=== PATIENT | male | born 1960 | race Caucasian/White ===

== ENCOUNTER 2022-12-27 10:33 | Day surgery (SDC) | payer BC, MEDICAID ==
[~2022-12-27] VITALS: Ht 167.6 cm; Wt 81.6 kg
[2022-12-27] MEDS ORDERED: ACETAMINOPHEN I.V. 1000 MG 100 ML IV ONE (13:43)
[2022-12-27] MEDS ORDERED: LABETALOL 100 MG/ 20ML VIAL IVP PRN (13:45)
[2022-12-27] MEDS ORDERED: LR 1,000 ML IV SCH (13:45)
[2022-12-27] MEDS ORDERED: HYDROmorphone 1 MG/ML INJ. CARTRIDGE IVP PRN ×2 (13:45)
[2022-12-27] MEDS ORDERED: MEPERIDINE HCL/PF 25 MG/ML DISP.SYRIN IVP PRN (13:45)
[2022-12-27] MEDS ORDERED: MIDAZOLAM HCL 2 MG/2 ML VIAL (VERSED) IVP PRN (13:45)
[2022-12-27] MEDS ORDERED: METOCLOPRAMIDE HCL 10 MG/2 ML VIAL IVP PRN (13:45)
[2022-12-27] MEDS ORDERED: hydrALAZINE HCL 20 MG/ML VIAL IVP PRN (13:45)
[2022-12-27] MEDS ORDERED: MUPIROCIN 2% TOPICAL OINTMENT 22 GM ONE (15:44)
[2022-12-27] MEDS ORDERED: LR 1,000 ML IV.SOLN IV ONE (15:44)
[2022-12-27] MEDS ORDERED: WATER FOR IRRIGATION,STERILE 1,000 ML IRRIG.SOLN IR ONE (15:44)
[2022-12-27] MEDS ORDERED: NS 1000 ML IV.SOLN IV ONE (15:44)
[2022-12-27] MEDS ORDERED: PROPOFOL 200MG/ 20ML VIAL (DIPRIVAN) IV ONE (15:44)
[2022-12-27] MEDS ORDERED: ROCURONIUM BROMIDE 10 MG/ML (ZEMURON) ONE (15:44)
[2022-12-27] MEDS ORDERED: DEXAMETHASONE SOD PHOSPHATE 4 MG/ML VIAL ONE (15:44)
[2022-12-27] MEDS ORDERED: fentaNYL CITRATE/PF 100 MCG/2 ML AMP ONE (15:44)
[2022-12-27] MEDS ORDERED: EPINEPHrine HCL 1 MG/ML VIAL ONE (15:44)
[2022-12-27] MEDS ORDERED: ONDANSETRON HCL 4 MG/2 ML VIAL ONE (15:44)
[2022-12-27] MEDS ORDERED: LIDOCAINE 1% 10 MG/ML, 20 ML MDV ONE (15:44)
[2022-12-27] MEDS ORDERED: LIDOCAINE 2%, 20 ML MDV ONE (15:44)
[2022-12-27] MEDS ORDERED: MIDAZOLAM HCL 2 MG/2 ML VIAL (VERSED) ONE (15:44)
[2022-12-27] MEDS ORDERED: NS IRRIG SOLN 1000 ML IR ONE (15:44)
[2022-12-27] MEDS ORDERED: DESFLURANE 15 MIN GAS INH ONE (15:44)
[2022-12-27] MEDS ORDERED: SUGAMMADEX SODIUM 200 MG/2 ML VIAL IV ONE (15:44)
[2022-12-27] MEDS ORDERED: METOCLOPRAMIDE HCL 10 MG/2 ML VIAL ONE (16:06)
[2022-12-27 18:46] VITALS: BP_SYST 120
== END 2022-12-27 19:45 | disposition home or self-care (01) ==
LOC: SDS 10:33
PROVIDERS: ATTEND Otolaryngology
DX: J34.89 Other specified disorders of nose and nasal sinuses (principal); D38.5 Neoplasm of uncertain behavior of other respiratory organs; J34.2 Deviated nasal septum; E78.5 Hyperlipidemia, unspecified; Z88.0 Allergy status to penicillin; Z91.010 Allergy to peanuts; Z91.018 Allergy to other foods; Z87.891 Personal history of nicotine dependence; Z79.899 Other long term (current) drug therapy; Z20.822 Contact with and (suspected) exposure to COVID-19
CPT/HCPCS: 36415 ×2; 31298; 31255; 30140; 30520; 31256; 82962; 87081; 88304; 88305; 88313; 87426; U0003; J3490; J1100; J0171; J2001 ×2; J2765; J3465; J2405; J2704; J3010; J7120; J7030; C1726; J0131; 88311